=== PATIENT | male | born 1980 | race American Indian/Alaskan Native ===

== ENCOUNTER 2019-01-17 13:46 | Emergency (ER) | payer MEDICAID ==
[2019-01-17] MEDS ORDERED: MOTRIN PO ONE (16:01)
--- NOTE | 2019-01-17 16:01 | Emergency Department Report ---
Addendum entered and electronically signed by MARK MORFIN FNP 01/17/19 16:06: Blank Doc - Documentation Documentation: Correction, patient received tramadol 50 mg po while in triage. Original Note: Blank Doc - Documentation Documentation: This is a 38 y.o. male that presents with right great toe pain from injury last night. He tried to kick a door closed at home and kicked the door shut injuring right great toe. Pain is worse with weight bearing. States he is unable to move toe. Ordered: xray of right toes Given ibuprofen. Fast track for further evaluation.
[2019-01-17] MEDS ORDERED: ULTRAM PO ONE (16:03)
[2019-01-17] MEDS ORDERED: ULTRAM ONE (16:06)
--- NOTE | 2019-01-17 16:57 | XRay Report ---
FINAL REPORT EXAM: XR TOE(S) 2+V RT HISTORY: great toe swelling and pain COMPARISON: None. TECHNIQUE: Three views of the right great toe FINDINGS: There is normal alignment without acute fracture or dislocation. The joint spaces are preserved. Ther e is mild overlying soft tissue swelling. There is no radiopaque foreign body. IMPRESSION: No acute bony abnormality of the right great toe. Diffuse soft tissue swelling.
--- NOTE | 2019-01-17 18:05 | Emergency Department Report ---
ED Lower Extremity HPI - General Chief Complaint: Extremity Injury, Lower Stated Complaint: (R) BIG TOE PAIN Time Seen by Provider: 01/17/19 15:57 Source: patient Mode of arrival: Ambulatory Limitations: No Limitations - History of Present Illness Initial Comments: Mr. Lee presents with severe pain and swelling right toe after he kicked a hard door. He is concerned that he has broken his toe. Severe pain. Walking with limp. Complaint: foot injury -: days(s) Injury: Toes: Right Type of Injury: blunt Place: home Severity: severe Worsens With: weight bearing Context: direct blow Associated Symptoms: swelling - Related Data Previous Rx's Medication Instructions Recorded Last Taken Type Ranitidine HCl [Zantac 150 MG TAB] 150 mg PO BID #60 tablet 08/06/15 Unknown Rx HYDROcodone/APAP 5-325 [[place] 1 - 2 each PO Q6HR PRN #20 tablet 09/25/16 Unknown Rx 5/325] Ibuprofen [Motrin 800 MG tab] 800 mg PO Q8HR PRN #20 tablet 09/25/16 Unknown Rx Ibuprofen 800 mg PO QID PRN #20 tablet 01/17/19 Unknown Rx Allergies Allergy/AdvReac Type Severity Reaction Status Date / Time iodine Allergy Shortness Verified 01/17/19 13:47 of Breath shellfish derived Allergy Hives Verified 01/17/19 13:47 ED Review of Systems ROS: Stated complaint: (R) BIG TOE PAIN Other details as noted in HPI Constitutional: denies: fever, malaise Skin: denies: lesions Neurological: denies: numbness, paresthesias Hematological/Lymphatic: denies: as per HPI, easy bleeding ED Past Medical Hx - Past Medical History Hx GERD: Yes Additional medical history: ulcer, gastric - Surgical History Additional Surgical History: oral surgery, testicular surgery, Right shoulder dislocation - Social History Smoking Status: Never Smoker Substance Use Type: None - Medications Home Medications: Home Medications Medication Instructions Recorded Confirmed Last Taken Type Ranitidine HCl [Zantac 150 MG TAB] 150 mg PO BID #60 tablet 08/06/15 09/24/16 Unknown Rx HYDROcodone/APAP 5-325 [[place] 1 - 2 each PO Q6HR PRN #20 tablet 09/25/16 Unknown Rx 5/325] Ibuprofen [Motrin 800 MG tab] 800 mg PO Q8HR PRN #20 tablet 09/25/16 Unknown Rx Ibuprofen 800 mg PO QID PRN #20 tablet 01/17/19 Unknown Rx ED Physical Exam - General Limitations: No Limitations General appearance: alert, in no apparent distress - Head Head exam: Present: atraumatic, normocephalic - Neurological Exam Neurological exam: Present: alert, oriented X3 - Psychiatric Psychiatric exam: Present: normal affect, normal mood - Skin Skin exam: Present: warm, dry, intact, normal color - Other Other exam information: Right large toe mild global swelling without erythema, without open skin,+ tenderness to touch. ED Course Vital Signs 01/17/19 14:14 Temperature 98.3 F Pulse Rate 118 H Respiratory 16 Rate Blood Pressure 123/83 [Right] O2 Sat by Pulse 98 Oximetry ED Lower Extremity MDM - Radiology Data Radiology results: report reviewed Right foot x-ray: No fracture, no subluxation positive tissue swelling - Medical Decision Making Right foot toe contusion prescribed ibuprofen recommended ice Critical care attestation.: If time is entered above; I have spent that time in minutes in the direct care of this critically ill patient, excluding procedure time. ED Disposition Clinical Impression: Contusion of right great toe without damage to nail Disposition: DC-01 TO HOME OR SELFCARE Is pt being admited?: No Does the pt Need Aspirin: No Condition: Stable Instructions: Foot Contusion (ED) Prescriptions: Ibuprofen 800 mg PO QID PRN #20 tablet PRN Reason: Pain , Severe (7-10)
[2019-01-17 18:18] VITALS: BP 121/81
== END 2019-01-17 18:17 | disposition home or self-care (01) ==
LOC: ED 13:46
DX: S90.111A Contusion of right great toe without damage to nail, initial encounter (principal); K21.9 Gastro-esophageal reflux disease without esophagitis; Z91.013 Allergy to seafood; Z91.041 Radiographic dye allergy status; W50.1XXA Accidental kick by another person, initial encounter; Y93.89 Activity, other specified; Y92.098 Other place in other non-institutional residence as the place of occurrence of the external cause; Y99.8 Other external cause status
CPT/HCPCS: 99283